=== PATIENT | female | born 1945 | race Caucasian/White ===

== ENCOUNTER 2022-07-15 09:59 | Outpatient (CLI) | payer OTHER | END 2022-07-15 10:06 | disposition home or self-care (01) | LOC: RAD 09:59 | PROVIDERS: ATTEND Internal Medicine | DX: J01.90 Acute sinusitis, unspecified (principal) ==

== ENCOUNTER 2022-10-15 10:32 | Outpatient (CLI) | payer OTHER | END 2022-10-15 10:39 | disposition home or self-care (01) | LOC: RAD 10:32 | DX: Z01.811 Encounter for preprocedural respiratory examination (principal) ==